=== PATIENT | female | born 1995 | race Caucasian/White ===

== ENCOUNTER 2017-09-15 03:02 | Emergency (ER) | payer MEDICAID ==
[~2017-09-15] VITALS: Ht 177.8 cm; Wt 65.8 kg
[2017-09-15] MEDS ORDERED: sulfamethoxazole/trimethoprim DS (800/160mg) tablet PO ONE (03:35)
[2017-09-15] MEDS ORDERED: cephalexin 500mg capsule PO ONE (03:35)
[2017-09-15] MEDS ORDERED: CEPH500C5 PO (03:38)
[2017-09-15] MEDS ORDERED: SULF1TAB49 PO (03:38)
[2017-09-15 04:04] VITALS: BP 132/88
== END 2017-09-15 04:05 | disposition home or self-care (01) ==
LOC: ER 03:03
DX: L02.413 Cutaneous abscess of right upper limb (principal); F11.10 Opioid abuse, uncomplicated; F15.10 Other stimulant abuse, uncomplicated; F17.200 Nicotine dependence, unspecified, uncomplicated
CPT/HCPCS: 99283; A6257; A6449